=== PATIENT | female | born 1965 | race Caucasian/White ===

== ENCOUNTER 2016-09-25 12:08 | Outpatient (CLI) ==
[2016-06-24 15:36] VITALS: BMI 25.2
== END 2016-09-25 12:09 | disposition home or self-care (01) ==
LOC: AMBL 12:08
PROVIDERS: ATTEND Emergency Medicine
DX: K63.2 Fistula of intestine (principal)

== ENCOUNTER 2016-09-30 08:10 | Outpatient (CLI) ==
[2016-06-24 15:36] VITALS: BMI 25.2
--- NOTE | 2016-09-30 09:18 | US ---
Examination: Turner-scale and color Doppler ultrasonographic evaluation of the right upper quadrant. A limited ultrasonographic evaluation of the abdomen. Comparison: CT scan performed 11/05/2015. Reason for study: Liver disease unspecified. FINDINGS: The liver measures approximately 12.4 cm in length with normal appearing echotexture. Th ere are several small anechoic structures without interval vascularity that are too small to be accu rately characterize and likely represent cysts. There is no perihepatic free fluid. There is yvrose l antegrade portal venous flow. The gallbladder is unremarkable without intraluminal sludge, stone, or polyp. The gallbladder wall measures 0.17 cm in diameter. The common bile duct measures 0.47 cm without evidence of intraluminal stone or polyp. The pancreas is not well seen secondary to overlying bowel gas. The right kidney measures approximately 11.57 x 4.47 x 4.56 cm without obvious hydronephrosis or nep hrolithiasis. Impression: 1. Several small anechoic structures in the liver parenchyma without interval vascularity are likel y liver cysts 2. Otherwise, no acute findings are seen within the limited ultrasonographic evaluation of the abdo men.
== END 2016-09-30 08:11 | disposition home or self-care (01) ==
LOC: RAD 08:10
PROVIDERS: ATTEND Nurse Practitioner Family
DX: K76.9 Liver disease, unspecified (principal); Q89.09 Congenital malformations of spleen

== ENCOUNTER 2016-12-11 09:21 | Outpatient (CLI) ==
[2016-06-24 15:36] VITALS: BMI 25.2
[2016-12-11 12:50] LABS: BASOPHILS % (AUTO) 0.5 % (0.0-3.0); EOSINOPHILS # (AUTO) 0.2 K/ul (0.0-0.7); EOSINOPHILS % (AUTO) 2.3 % (0.0-7.0); HEMATOCRIT 42.7 % (37.0-47.0); HEMOGLOBIN 14.2 g/dl (12.0-16.0); IMMATURE GRANULOCYTE % (AUTO) 0.1 % (0.0-5.0); LYMPHOCYTES # (AUTO) 1.7 K/uL (0.60-3.4); LYMPHOCYTES % (AUTO) 21.5 (10.0-50.0); MEAN CORPUSCULAR HEMOGLOBIN 30.7 pg (27.0-31.0); MEAN CORPUSCULAR HGB CONC 33.3 (31.8-35.4); MEAN CORPUSCULAR VOLUME 92.4 fl (81.0-99.0); MONOCYTES # (AUTO) 0.3 K/uL (0.4-2.0); MONOCYTES % (AUTO) 3.7 (0-10); NEUTROPHILS # (AUTO) 5.6 K/ul (2.0-6.9); NEUTROPHILS % (AUTO) 71.9; PLATELET COUNT 434 10^3/uL (140-440); RED BLOOD COUNT 4.62 10^6/ul (4.20-5.40); WHITE BLOOD COUNT 7.77 K/ul (4.6-10.2)
[2016-12-11 14:22] LABS: ALBUMIN 4.2 g/dL (3.4-5.0); ALBUMIN/GLOBULIN RATIO 1.17; ANION GAP 15.1; BILIRUBIN,TOTAL 0.32 mg/dL (0.00-1.20); BUN/CREATININE RATIO 12.5; CALCIUM 9.7 mg/dL (8.2-10.2); CHOL/HDL RATIO 5.3 (4.5-5.5); CREATININE 0.64 mg/dL (0.60-1.30); POTASSIUM 4.1 mmol/L (3.5-5.10); TOTAL PROTEIN 7.8 g/dL (6.4-8.2)
== END 2016-12-11 09:22 | disposition home or self-care (01) ==
LOC: LAB 09:21
PROVIDERS: ATTEND Nurse Practitioner Family
DX: K63.5 Polyp of colon (principal); F41.1 Generalized anxiety disorder; R10.9 Unspecified abdominal pain; K76.9 Liver disease, unspecified; Q89.09 Congenital malformations of spleen
CPT/HCPCS: 36415; 80053; 80061; 80074; 84443; 85025

== ENCOUNTER 2016-12-12 07:35 | Outpatient (CLI) ==
[2016-06-24 15:36] VITALS: BMI 25.2
--- NOTE | 2016-12-12 08:38 | CT ---
EXAM: CT of the abdomen pelvis with contrast History: Colonic polyp, abdominal pain. Comparison: Abdominal ultrasound 09/30/2016, CT abdomen pelvis 11/05/2015 Technique: Multiplanar CT images through the abdomen pelvis were obtained following administration of IV contrast Findings: Subsegmental atelectasis seen within the lingula and left lower lobe. No acute osseous ab normalities. The liver is enlarged. Small hepatic cysts again noted. No discrete gallstones identified by CT. There is a 5.4 cm x 3.7 cm complicated or complex cystic lesion adjacent to the spleen versus subcap sular splenic lesion and is new compared to the prior study. Pancreas is unremarkable. Adrenal glan ds are unremarkable. No renal masses. Postsurgical changes of bowel. No bowel obstruction. Nondi lated fluid filled loops of bowel. The colon is not well distended. Mild diffuse bladder wall thic kening. No free air. No ascites. There is mild inflammation is seen within the left inguinal mikayla on but no enlarged lymph nodes. Mild atherosclerotic vascular calcifications. Anterior surgical sc arring. Uterus is not seen. Impression: 1. New complicated or complex cystic lesion is either adjacent to the spleen or a subcapsular splen ic location. The main differential diagnosis includes hematoma. Infected fluid collection is not ex cluded and follow-up is recommended to assure resolution. 2. Postsurgical changes of the colon. There is most likely an underlying mild gastroenterocolitis. No evidence for bowel obstruction. 3. Hepatomegaly and stable small hepatic cysts. 4. Mild nonspecific inflammation within the left inguinal region but without enlarged lymph nodes. 5. Mild diffuse bladder wall thickening could be related to the underdistended state or mild cystit is. Correlate with urinalysis.
[2016-12-12 16:20] LABS: BILIRUBIN,URINE Negative (NEGATIVE); KETONES,URINE Negative (NEGATIVE); LEUKOCYTE ESTERASE ,URINE Negative (NEGATIVE); NITRITE,URINE Negative (NEGATIVE); PH,URINE 5.5 (5-9); PROTEIN,URINE Negative (NEGATIVE); URINE, BLOOD Negative (NEGATIVE)
[2016-12-12 16:26] LABS: ADD URINE MICROSCOPIC NO
== END 2016-12-12 07:36 | disposition home or self-care (01) ==
LOC: RAD 07:35
PROVIDERS: ATTEND Nurse Practitioner Family
DX: N32.89 Other specified disorders of bladder (principal); K63.5 Polyp of colon; R10.811 Right upper quadrant abdominal tenderness; R10.9 Unspecified abdominal pain
CPT/HCPCS: 81001

== ENCOUNTER 2016-12-19 19:37 | Outpatient (CLI) ==
[2016-06-24 15:36] VITALS: BMI 25.2
[2016-12-19 19:49] LABS: HEMATOCRIT 38.4 % (37.0-47.0); HEMOGLOBIN 12.9 g/dl (12.0-16.0); MEAN CORPUSCULAR HEMOGLOBIN 30.7 pg (27.0-31.0); MEAN CORPUSCULAR HGB CONC 33.6 (31.8-35.4); MEAN CORPUSCULAR VOLUME 91.4 fl (81.0-99.0); RED BLOOD COUNT 4.2 10^6/ul (4.20-5.40); WHITE BLOOD COUNT 6.37 K/ul (4.6-10.2)
== END 2016-12-19 19:38 | disposition home or self-care (01) ==
LOC: NONPT 19:37
DX: R50.9 Fever, unspecified (principal); L08.9 Local infection of the skin and subcutaneous tissue, unspecified
CPT/HCPCS: 85027

== ENCOUNTER 2017-06-15 15:09 | Outpatient (CLI) ==
[2016-06-24 15:36] VITALS: BMI 25.2
== END 2017-06-15 15:10 | disposition home or self-care (01) ==
LOC: CAR 15:09
PROVIDERS: ATTEND Nurse Practitioner Family
DX: R06.81 Apnea, not elsewhere classified (principal); R06.83 Snoring; R40.0 Somnolence; R53.83 Other fatigue

== ENCOUNTER 2017-07-19 12:06 | Outpatient (CLI) ==
[2016-06-24 15:36] VITALS: BMI 25.2
== END 2017-07-19 12:07 | disposition home or self-care (01) ==
LOC: LAB 12:06
PROVIDERS: ATTEND Psychiatry & Neurology Psychiatry
DX: E78.1 Pure hyperglyceridemia (principal); F31.9 Bipolar disorder, unspecified
CPT/HCPCS: 36415; 80053; 80061; 80178; 84439; 84443

== ENCOUNTER 2018-07-02 14:19 | Outpatient (CLI) ==
[2016-06-24 15:36] VITALS: BMI 25.2
== END 2018-07-02 14:20 | disposition home or self-care (01) ==
LOC: LAB 14:19 → RHC-LAB 14:20
PROVIDERS: ATTEND Nurse Practitioner Family
DX: R10.9 Unspecified abdominal pain (principal); R10.817 Generalized abdominal tenderness; R11.2 Nausea with vomiting, unspecified
CPT/HCPCS: 36415; 80053; 82150; 83690; 85025

== ENCOUNTER 2018-07-04 08:59 | Outpatient (CLI) ==
[2016-06-24 15:36] VITALS: BMI 25.2
--- NOTE | 2018-07-04 18:19 | DI ---
EXAM: Lumbar spine five views, including oblique views HISTORY: Lumbar disc degeneration COMPARISON: None TECHNIQUE: Five views lumbar spine were performed, including oblique views FINDINGS: Sacroiliac joints intact. Sacral arcuate intact. Vertebral bodies normal height. No fra cture. No subluxation. Small multilevel marginal osteophyte formation. Mild intervertebral disc sp alexis narrowing of L3-L4. Suggestion of facet arthrosis in the lower spine. Atherosclerotic vascular calcification. IMPRESSION: Mild chronic discogenic degenerative disease and facet arthrosis.
== END 2018-07-04 09:00 | disposition home or self-care (01) ==
LOC: RAD 08:59
PROVIDERS: ATTEND Pain Medicine Interventional Pain Medicine
DX: M51.36 Other intervertebral disc degeneration, lumbar region (principal); M51.37 Other intervertebral disc degeneration, lumbosacral region; M47.816 Spondylosis without myelopathy or radiculopathy, lumbar region; M47.817 Spondylosis without myelopathy or radiculopathy, lumbosacral region; M46.1 Sacroiliitis, not elsewhere classified

== ENCOUNTER 2018-07-12 07:45 | Outpatient (CLI) ==
[2016-06-24 15:36] VITALS: BMI 25.2
--- NOTE | 2018-07-12 08:44 | CT ---
EXAM: CT ABDOMEN AND PELVIS HISTORY: Abdominal pain, swelling and constipation TECHNIQUE: CT abdomen and pelvis with intravenous contrast. Images were reconstructed using 5 mm se ction thickness. Reformations were prepared. 75 mL Omnipaque. COMPARISON: 12/12/2016 FINDINGS: Elongated right hepatic lobe. Multiple tiny low attenuation lesions of the liver are stable suggesti ng cysts. The subcapsular fluid seen in the spleen previously has significantly decreased in size cu rrently approximately 1.4 x 2.4 x 1.1 cm. Mild to moderate atherosclerosis. Gallbladder and pancrea s are within normal limits. No adrenal mass. Normal enhancement of the kidneys without hydronephros is. Mild to moderate atherosclerotic disease. Stomach is within normal limits. Apparent previous hemicolectomy. A few loops of the more proximal small bowel are mildly distended with fluid. There is no excess fecal retention within the residual colon. The rectal vault is relatively clear. Urinary bladder is within normal limits. Patient has had previous hysterectomy. There is a new, tiny periumbilical hernia with a small knuckle of the regional bowel extending into t he hernia. Transverse neck of about 2 cm. No evidence of incarceration or strangulation of the wilmer l. Deformity of the regional abdominal wall suggesting previous operation at this level. Stable linear opacities in the anterior left lung base probably representing scarring or chronic atel ectasis. There is no pneumoperitoneum. IMPRESSION: 1. Previous right hemicolectomy. No excess fecal retention. Some the proximal small bowel has mild fluid distension which may be related to the anastomoses, early enteritis or less likely partial bow el obstruction. Small periumbilical hernia is new or more noticeable. This does not appear to obstr uct the bowel. Follow up with [facility] can be considered if indicated. 2. Decreased size of previously seen subcapsular splenic fluid collection. 3. Stable tiny liver cysts. 4. Atherosclerotic disease.
== END 2018-07-12 07:46 | disposition home or self-care (01) ==
LOC: RAD 07:45
PROVIDERS: ATTEND Nurse Practitioner Family
DX: R10.9 Unspecified abdominal pain (principal); R10.817 Generalized abdominal tenderness; R11.2 Nausea with vomiting, unspecified; Z98.890 Other specified postprocedural states